=== PATIENT | female | born 1945 | race Caucasian/White ===

== ENCOUNTER → 2018-09-12 08:46 | Outpatient (CLI) | payer MEDICARE, MEDICAID, SELFPAY ==
[2018-09-12 09:18] LABS: Absolute Lymphocyte Count 2.29 X10^3/ul (0.83-4.51); Absolute Neutrophil Count 1.4 X10^3/uL (2.0-7.7); Basophil# 0.02 X10^3/uL; Basophil% 0.5 % (0-1); Eosinophils% 2.4 % (0-5); Hematocrit 38.6 % (37-47); Hemoglobin 11.8 g/dl (12.0-15.0); Lymphocyte # 2.29 X10^3/ul (4.0); Lymphocyte % 53.9 % (19-41); Mean Corp Hgb Conc 30.6 g/gl (32-36); Mean Corpuscular Hgb 24.5 pg (27.0-32.0); Mean Corpuscular Volume 80.1 fL (81-99); Mean Platelet Vol. 11.4 fl (6.2-12.0); Monocyte# 0.47 X10^3/uL; Monocyte% 11.1 % (0-10); Neutrophil # 1.37 X10^3/uL (2.7-7.7); Neutrophil % 32.1 % (47-70); Platelet Count 208 K/mm3 (150-450); RBC Distribution Width CV 16.2 % (11.6-14.6); RBC Distribution Width SD 45.9 fl (35.1-43.9); Red Blood Count 4.82 M/mm3 (4.2-5.4); White Blood Count 4.3 K/mm3 (4.4-11.0)
[2018-09-12 09:23] LABS: POSITIVE COUNT NO; POSITIVE DIFFERENTIAL NO; POSITIVE MORPHOLOGY NO
[2018-09-12 09:33] LABS: BUN 20 mg/dL (7-18); Glucose 131 mg/dL (74-106)
[2018-09-12 09:34] LABS: Anion Gap 7 (5-15); Calcium,Total 8.5 mg/dL (8.5-10.1); Chloride 111 mmol/L (98-107); EST Glomerular Filtration Rate 75 mL/min (>60); Est Glom Filt Rate - Afr Amer 91 mL/min (>60); Potassium 3.4 mmol/L (3.5-5.1); Sodium Level 142 mmol/L (136-145)
--- NOTE | 2018-09-12 17:24 | PCM.TILTTABL ---
- Staff Staff: Aysha Back, - - Jess Mcfarlane - Summary Pre Test Resting HR: 86 - Alert and oriented: Warm and dry Pre Test Resting BP: 180/83 - Alert and oriented: Warm and dry Minimum Test HR: 84 - Alert and oriented: Warm and dry Maximum Test HR: 100 - Alert and oriented: Warm and dry Minimum Test BP: 110/56 - Alert and oriented: Warm and dry Maximum Test BP: 180/83 - Alert and oriented: Warm and dry Reason for Test Termination: Reached Maximum Test Time Physician Tilt Table Report - Patient's Physicians Primary Care Physician: Quan Reddy [employer] Room Supervisor: Gonzalo Frias Indications/Diagnosis: Syncope Procedure Comments: The patient was brought to the tilt table laboratory laid supine on the tilt table. The patient was alert and oriented and warm and dry. The baseline heart rate was 83 bpm with a baseline blood pressure of 180/83 mmHg. The cardiac rhythm was normal sinus rhythm. The patient was placed in the 70 degree upright tilt table position for 20 minutes. The patient remained alert and oriented and warm and dry. The minimal heart rate was 84 bpm with a minimal blood pressure of 152/74 mmHg. The maximal heart rate was 93 bpm with a maximal blood pressure of 180/83 mmHg. The cardiac rhythm remained sinus rhythm with a rare PAC/PVC. The patient noted symptoms of pressure in the chest shortness of breath, headache, but did not lose consciousness. The patient was returned to the supine position. The patient was then administered nitroglycerin sublingual 0.4 mg x 1. Patient was returned to the 70 degree upright tilt table position for 10 minutes. The patient remained alert and oriented and warm and dry. The minimal heart rate was 88 bpm with a minimal blood pressure of 110/56 mmHg and a maximal heart rate of 100 bpm with a maximal blood pressure 143/72 mmHg. The cardiac rhythm remains sinus rhythm with a rare PAC. The patient complained of chest pounding, dizziness, and headache. The patient did not lose consciousness. The patient was returned to the supine position. The patient remained alert and oriented and warm and dry. The concluding heart rate was 92 bpm with a concluding blood pressure 149/73 mmHg. The cardiac rhythm remains sinus rhythm. The patient was without symptoms at that time. The patient was subsequently released from the tilt table laboratory. Summary: 70 degree upright tilt table study pre-and post nitroglycerin challenge considered negative for reproducible vasovagal/neurocardiogenic mediated syncope.
[2018-09-12 17:32] VITALS: BP 110/56; BP 180/83
== END ==
PROVIDERS: Family Provider Internal Medicine; PCP Internal Medicine; Referring Provider Internal Medicine; Visit Provider Internal Medicine
DX: Z01.818 Encounter for other preprocedural examination (principal); R55 Syncope and collapse
CPT/HCPCS: 36415; 80048; 85025; 93660; J7040; A4216

== ENCOUNTER → 2019-09-28 10:27 | Outpatient (CLI) | payer MEDICARE, MEDICAID, SELFPAY ==
--- NOTE | 2019-09-28 10:29 | ART_ITS ---
Reason For Study: PVD Procedure A bilateral lower extremity continuous wave Doppler with analog waveform analysis,segmental pressures,and ankle brachial indexes without exercise. Left Segmental Pressures Left brachial= 188mmHg. Left calf = 109mmHg. Left posterior tibial artery = 106mmHg. Left dorsalis pedis artery = 107mmHg. Left digit = 69 mmHg. The left dorsalis pedis waveforms are monophasic. The left posterior tibial artery waveforms are monophasic. Right Segmental Pressures Right brachial= 186mmHg. Right thigh = 159mmHg. Right ankle= 115mmHg. Right dorsalis pedis artery = 93mmHg. Right digit = 83 mmHg. The right dorsalis pedis waveforms are monophasic. The right posterior tibial artery waveforms are absent. Indices The right ankle brachial index by the dorsalis pedis is 0.49. The right digital-brachial index is 0.44. The left ankle brachial index by the dorsalis pedis is 0.57. The left ankle brachial index by the posterior tibial artery is 0.56. The left digital-brachial index is 0.37. Interpretation Summary On able to obtain right posterior tibial blood pressure Abnormal right PT ankle-brachial index 0.49 consistent with severe arterial occlusive disease. Abnormal right digital brachial index 0.44 Abnormal right dorsalis pedis monophasic Doppler waveforms consistent with severe disease Abnormal left PT and DP ankle-brachial index 0.56 and 0.57 consistent with moderately severe arterial occlusive disease. Abnormal left digital brachial index 0.37 Abnormal left posterior tibial and dorsalis pedis monophasic Doppler waveforms consistent with severe disease Ordering Physician: Dharmesh Gutierrez Referring Physician: Quan Reddy Performed By: Pia Cannon RVT
== END ==
PROVIDERS: PCP Internal Medicine; Referring Provider Surgery; Visit Provider Surgery
DX: I73.9 Peripheral vascular disease, unspecified (principal); M79.605 Pain in left leg
CPT/HCPCS: 93923

== ENCOUNTER 2020-01-14 14:18 | Inpatient (IN) | payer MEDICARE, MEDICAID, SELFPAY ==
[2019-10-09 12:41] VITALS: BMI 26.8
[2020-01-14] VITALS (14 sets, daily range): BP systolic 104–130; BP diastolic 42–57; PULSE 65–80; RESP 16–24; TEMP 36.7–37.8; O2SAT 87–96; BMI 30.8; BMI 30.3; BMI 30.4
--- NOTE | 2020-01-14 15:05 | CT_ITS ---
STUDY: CT BRAIN WITHOUT CONTRAST REASON FOR EXAM: Female, 74 years old. ALTERED MENTAL STATUS, FOUND UNRESPONSIVE THIS AM RADIATION DOSAGE (If Supplied By Facility): CTDIvol = ( 44.99 ) mGy, DLP = ( 846.73 ) mGycm TECHNIQUE: Transaxial CT imaging of the brain was performed without administration of intravenous contrast material. Individualized dose optimization techniques were used for this CT. COMPARISON: Comparison is made with prior examination dated 01/14/2015. FINDINGS: Normal soft tissue structures. Normal calvarium. There is mild cerebral atrophy with widening of the extra-axial spaces and ventricular dilatation. Normal white matter tracts of the cerebral hemispheres. Normal basal ganglia and thalami. Normal brainstem. Normal cerebellum. There is no intracranial hemorrhage. There are no findings of an acute ischemic infarction. Atherosclerotic plaque formation of the cavernous portions of the internal carotid arteries bilaterally. Normal visualized paranasal sinuses. CT/Brain/Head without Contrast IMPRESSION: Chronic involutional changes of the brain. Electronically Signed: Han Medel, at 15:49 EDT , Service support ,
--- NOTE | 2020-01-14 15:07 | EKG12_ITS ---
Test Reason : HYPERKALEMIA Blood Pressure : / mmHG Vent. Rate : 065 BPM Atrial Rate : 065 BPM P-R Int : 160 ms QRS Dur : 070 ms QT Int : 414 ms P-R-T Axes : 027 043 061 degrees QTc Int : 430 ms Normal sinus rhythm Normal ECG When compared with ECG of 14-JAN-2020 14:48, MANUAL COMPARISON REQUIRED, DATA IS UNCONFIRMED Confirmed by KAMALA HOPKINS, DARIN ([id number]), features editor JOVANI NAVARRO ([id number]) on 01/17/2020 11:02:23 AM Referred By: BILL Confirmed By:DARIN WRAY MD
--- NOTE | 2020-01-14 15:23 | ED.VIS.GEN ---
History of Present Illness Chief Complaint: Alt LOC Informant: Family, Community Outreach Advocate Narrative: Patient is a 74-year-old female presenting from home for decreased responsiveness. I spoke to her daughter on the phone, Glenny who relayed the information. The patient was discharged from [facility] yesterday after she had a prolonged stay due to an infected graft in her left groin. Patient had a wound VAC in a PICC line as well as associated sepsis. Her PICC line was removed yesterday and patient seen be doing better. She went to bed around 830 or 9 PM last night and seemed normal. Around 6 AM when her daughter tried to give her her normal medications the patient would not wake up. She checked on her throughout the day and tried to wake up multiple times with patient remained very somnolent. This afternoon patient continued to not respond the patient's daughter called 911. Patient is currently on Eliquis. The daughter states that patient is DNR CCA. Patient was not having any acute complaints yesterday. Past Medical History - Allergies and Home Meds Allergies/Adverse Reactions: Allergies cefuroxime axetil [From Ceftin] Allergy (Verified 01/14/20 14:23) Other Qxddugr-Rks-Uxb Reductase Inhibitor Adverse Reaction (Verified 01/14/20 19:01) MY LEGS GIVE OUT MY LEGS GIVE OUT Past Medical History: - - Stroke, GERD, depression, peripheral vascular disease, hypertension, hyperlipidemia, type 2 diabetes mellitus Surgical History: appendectomy, cholecystectomy, gastric bypass, hysterectomy - Dysfunctional uterine bleeding, tonsillectomy, - - Vascular surgery on her lower extremities by Dr. Dharmesh Gutierrez. IVC filter. Smoking Status: Never smoker - Family History Maternal Family History: Reports: - - Maternal grandmother had breast cancer, her mother had cardiovascular disease. Paternal Family History: Reports: Heart Disease Sibling Family History: Reports: Heart Disease, - - Sister had cancer of the bladder and liver Review of Systems ROS: Unable to Obtain - Secondary to altered mental status and patient unable to respond to questions Physical Exam Vital Signs/Narrative: Vital Signs Temp Pulse Resp BP Pulse Ox 01/14/20 14:23 79 23 H 93 01/14/20 14:19 100.0 F H 80 24 H 105/54 L 87 Inital Vital Signs reviewed: Yes General: Well nourished, Well developed, No Acute Distress Head: Normocephalic, Atraumatic Eyes: Perrl, EOMI ENT: Moist mucous membranes, No rhinorrhea, TM's clear Neck: Supple, Nontender Cardiovascular: Regular rate, Regular rhythm, No murmurs Respiratory: No distress, CTA bilaterally, Chest nontender, - - Tachypnea Abdomen: Soft, Nontender, Nondistended, Normal bowel sounds Back: Nontender, Normal Inspection Extremities: Nontender, No edema, - - 2+ bilateral DP pulses Skin: Normal color, No rash, - - Mild erythema of the left upper thigh and groin consistent with recent infection of that appears to be resolving. Patient has an open wound of her left groin that is packed with gauze but does not appear to be grossly infected at this time. Neurological: Stupor, - - Patient appears protecting her airway and responds to painful stimuli but does not have any spontaneous or purposeful movements. She is not have any focal neurologic deficits. Psychological: Normal affect, Normal Mood Diagnostic/Tx/Re-eval Chest X-Ray - ED: 1 View, Read by ED Physician, Read by Radiologist, - - Bilateral infiltrate Clinical Impression(s) from Imaging Studies Brain CT 01/14/20 15:05 IMPRESSION: Chronic involutional changes of the brain. Electronically Signed: Han Gianfranco, at 15:49 EDT , Service support , Chest X-Ray 01/14/20 15:30 IMPRESSION: Stable elevation of the left hemidiaphragm with perihilar infiltrates as well as bibasilar infiltrates. Follow-up is recommended. Electronically Signed: Han Medel, at 15:50 EDT , Service support , Laboratory Data 01/14/20 01/14/20 01/14/20 15:15 15:15 15:15 WBC 7.8 RBC 3.08 L Hgb 10.0 L Hct 31.4 L MCV 101.9 H MCH 32.5 H MCHC 31.8 L RDW Std Deviation 71.7 H RDW Coeff of Dorothea 19.4 H Plt Count 123 L MPV 13.9 H Differential Comment PT 18.3 H INR 1.6 APTT 34.9 Specimen Type Sample Site pH Bicarbonate Actual Total CO2 Base Excess O2 Saturation O2 % ABG pCO2 ABG pO2 Ruddy Test O2 Delivery Device Sodium Potassium Chloride Carbon Dioxide Anion Gap BUN Creatinine Estim Creat Clear Calc Est GFR (MDRD) Af Amer Est GFR (MDRD) Non-Af BUN/Creatinine Ratio Glucose Lactic Acid Calcium Total Bilirubin AST ALT Alkaline Phosphatase Troponin I < 0.015 Total Protein Albumin Globulin Albumin/Globulin Ratio Procalcitonin Urine Color Urine Clarity Urine pH Ur Specific [place] Urine Protein Urine Glucose (UA) Urine Ketones Urine Occult Blood Urine Nitrite Urine Bilirubin Urine Urobilinogen Ur Leukocyte Esterase Urine RBC Urine WBC Ur Squamous Epith Cells Amorphous Sediment Urine Bacteria Hyaline Casts Urine Mucus COVID-19 (SIMBA) 01/14/20 01/14/20 01/14/20 15:15 15:15 15:23 WBC RBC Hgb Hct MCV MCH MCHC RDW Std Deviation RDW Coeff of Dorothea Plt Count MPV Differential Comment PT INR APTT Specimen Type ART Sample Site L Radial pH 7.33 L Bicarbonate Actual 23.5 Total CO2 25 Base Excess -3 L O2 Saturation 94 L O2 % 2 ABG pCO2 45.1 H ABG pO2 75 Ruddy Test Positive O2 Delivery Device Cannula Sodium 139 Potassium 6.3 H* Chloride 111 H Carbon Dioxide 23.0 Anion Gap 5 BUN 16 Creatinine 0.98 Estim Creat Clear Calc 46.69 Est GFR (MDRD) Af Amer 72 Est GFR (MDRD) Non-Af 59 L BUN/Creatinine Ratio 16.3 Glucose 117 H Lactic Acid 0.9 Calcium 8.1 L Total Bilirubin 0.40 AST 156 H ALT 62 H Alkaline Phosphatase 282 H Troponin I Total Protein 5.8 L Albumin 1.9 L Globulin 3.9 Albumin/Globulin Ratio 0.5 L Procalcitonin Urine Color Urine Clarity Urine pH Ur Specific [place] Urine Protein Urine Glucose (UA) Urine Ketones Urine Occult Blood Urine Nitrite Urine Bilirubin Urine Urobilinogen Ur Leukocyte Esterase Urine RBC Urine WBC Ur Squamous Epith Cells Amorphous Sediment Urine Bacteria Hyaline Casts Urine Mucus COVID-19 (SIMBA) 01/14/20 01/14/20 01/14/20 16:10 16:48 17:00 WBC RBC Hgb Hct MCV MCH MCHC RDW Std Deviation RDW Coeff of Dorothea Plt Count MPV Differential Comment PT INR APTT Specimen Type Sample Site pH Bicarbonate Actual Total CO2 Base Excess O2 Saturation O2 % ABG pCO2 ABG pO2 Ruddy Test O2 Delivery Device Sodium Potassium Chloride Carbon Dioxide Anion Gap BUN Creatinine Estim Creat Clear Calc Est GFR (MDRD) Af Amer Est GFR (MDRD) Non-Af BUN/Creatinine Ratio Glucose Lactic Acid Calcium Total Bilirubin AST ALT Alkaline Phosphatase Troponin I Total Protein Albumin Globulin Albumin/Globulin Ratio Procalcitonin 1.74 H Urine Color Yellow Urine Clarity Clear Urine pH 5.0 Ur Specific [place] 1.020 Urine Protein 30 H Urine Glucose (UA) Normal Urine Ketones 5 H Urine Occult Blood 25 H Urine Nitrite Negative Urine Bilirubin Negative Urine Urobilinogen Normal Ur Leukocyte Esterase Negative Urine RBC 0 SEEN Urine WBC 0-5 SEEN Ur Squamous Epith Cells 5-10 SEEN Amorphous Sediment 1+ Urine Bacteria 1+ Hyaline Casts 0-5 SEEN Urine Mucus 0 SEEN COVID-19 (SIMBA) Negative - Rhythm Strip Rhythm Strip: Sinus Rhythm Rate: 76 Ectopy: None - EKG Initial EKG Interpretation: Sinus Rhythm, - - Sinus rhythm at a rate of 76 Normal intervals Normal axis Normal ST segments - Medical Decision Making Is evaluated for altered mental status. Patient is quite somnolent and lethargic in the emergency room. She is tachypneic but otherwise well-appearing. Her work-up is significant for bilateral pneumonia. She likely has encephalopathy secondary to this pneumonia. Given her recent hospitalization she is covered with broad-spectrum antibiotics. Patient does have a head CT which is negative for any acute process. I will patient did have recent infection of her legs she does not appear to have an acute infection at this time. Patient is hemodynamically stable and has minimal O2 requirements. Discussed with the hospitalist and we agreed that she should be stable for the PCU. ED Disposition - Plan for ED Patient: Disposition: [facility] Diagnosis: Encephalopathy, toxic, Bilateral pneumonia, Transaminitis
--- NOTE | 2020-01-14 15:30 | RAD_ITS ---
STUDY: X-RAY CHEST REASON FOR EXAM: Female, 74 years old. ALTERED MENTAL STATUS TECHNIQUE: Single AP portable view of the chest. COMPARISON: Comparison is made with prior study dated 07/09/2014. FINDINGS: EKG electrodes are seen. There is evidence of a bilateral perihilar infiltrates. Increased markings are also seen at both lung bases. The differential diagnosis to consider should include a CHF versus bilateral pneumonia. Stable elevation of the left hemidiaphragm. Blunting of left costophrenic angle. Normal size heart. Normal mediastinum and belen. Normal visualized pulmonary arteries. There is atherosclerotic calcification of the aortic arch with tortuosity. There are degenerative changes of the visualized thoracic spine. Normal visualized ribs, clavicles, and shoulders. There is no demonstrated abnormality of the visualized soft tissue structures of the upper abdomen. RAD/Chest 1 View (Portable) IMPRESSION: Stable elevation of the left hemidiaphragm with perihilar infiltrates as well as bibasilar infiltrates. Follow-up is recommended. Electronically Signed: Han Medel, at 15:50 EDT , Service support ,
[2020-01-14 15:31] LABS: Allen Test Positive; Base Excess -3 mmol/L (-2 to +2); Bicarbonate 23.5 mmol/L (22-26); Blood Gas Specimen Type ART; FI02 2; O2 Delivery Device Cannula; PO2 75 mmHG (75-100); SITE L Radial; SO2 94 % (95-99); Total Carbon Dioxide 25 mmol/L; pCO2 45.1 mmHg (35-45); pH 7.33 (7.35-7.45)
[2020-01-14 15:37] LABS: Hematocrit 31.4 % (37-47); Mean Corp Hgb Conc 31.8 g/dL (32-36); Mean Corpuscular Hgb 32.5 pg (27.0-32.0); Mean Corpuscular Volume 101.9 fL (81-99); Mean Platelet Vol. 13.9 fl (6.2-12.0); POSITIVE MORPHOLOGY YES; Platelet Count 123 K/mm3 (150-450); RBC Distribution Width CV 19.4 % (11.6-14.6); RBC Distribution Width SD 71.7 fl (35.1-43.9); Red Blood Count 3.08 M/mm3 (4.2-5.4); White Blood Count 7.8 K/mm3 (4.4-11.0)
[2020-01-14 15:41] LABS: Scan Indicated on CBC? Y/N YES- FLAGS NOTED
[2020-01-14 15:47] LABS: International Normalized Ratio 1.6; Prothrombin Time (Protime)PT. 18.3 SECONDS (11.7-14.9)
[2020-01-14 15:48] LABS: Partial Thromboplast Time 34.9 Seconds (24.1-36.2)
[2020-01-14 16:08] LABS: Lactic Acid 0.9 mmol/L (0.4-1.9)
[2020-01-14 16:19] LABS: Mucous, Urine 0 SEEN /hpf (<or=2+); Red Blood Cells-Urine 0 SEEN /hpf (0-5)
[2020-01-14 16:27] LABS: Color, Urine Yellow (Yellow); Glucose, Dipstick Normal (Normal); Ketone-Dipstick 5 mg/dl (Negative); Leukocyte Esterase-Dipstick Negative /ul (Negative); Nitrite-Dipstick Negative (Negative); Occult Blood-Urine 25 /ul (Negative); Protein-Dipstick 30 mg/dl (Negative); Urine Bilirubin Dipstick Negative (Negative); Urine Clarity Clear (Clear); Urine Urobilinogen Normal (Normal)
[2020-01-14 17:04] LABS: Squamous Epithelial Cells - UA 5-10 SEEN /hpf (5-10)
[2020-01-14 17:05] LABS: Bacteria 1+ /hpf (None Seen); Hyaline Cast 0-5 SEEN /lpf (0-5); White Blood Cells 0-5 SEEN /hpf (0-5)
[2020-01-14 17:06] LABS: Amorphous Sediment 1+
[2020-01-14] MEDS: 0.9% Normal Saline 1,000 ML 125 ML IV (17:11)
[2020-01-14 18:10] LABS: Procalcitonin 1.74 ng/mL (0.00-0.09)
[2020-01-14 18:30] LABS: Probe Check PASS; Specimen Processing Control PASS
--- NOTE | 2020-01-14 19:00 | HP.PCM_ITS ---
Problem List (1) Pneumonia due to gram-negative bacteria Status: Acute (2) Encephalopathy, toxic Status: Acute (3) skin cancer vulva Status: Chronic (4) history of IVC filter Status: Chronic (5) History of syncope Status: Chronic Comment: and collapse, recurrent.....for over a year now (6) PVD (peripheral vascular disease) Status: Chronic Comment: Had bypass surgery done by Dr. John Gutierrez (7) HTN (hypertension) Status: Chronic (8) Type II diabetes mellitus, uncontrolled Status: Chronic Comment: diet controlled after the gastric bypas surgery (9) GERD (gastroesophageal reflux disease) Status: Chronic (10) History of attempted suicide Status: Chronic (11) Psychosis Status: Chronic Comment: she is seen at the [facility] center and has hallucinations (12) Nephrolithiasis Status: Chronic (13) HLD (hyperlipidemia) Status: Chronic (14) History of bariatric surgery Status: Chronic Comment: 2010? History of Present Illness Date of Admission: 01/14/20 Chief Complaint: somnolence The patient is a 74 year old F found unresponsive by family. Patient was just discharged by [facility] for an infected graft. Patient is confused this time and unable to provide any history. No family present at bedside. History obtained to the emergency room physician. Patient had work-up that showed infiltrate the x-ray. Patient received Pipracil/tazobactam as well as vancomycin. Family was offered the opportunity return to [facility] but they prefer to stay here for the time being. [] Past Medical History Past Medical History (Chronic Problems): Chronic Problems (Last Reviewed 10/09/19 @ 12:33 by Paula Dunaway) skin cancer vulva (Chronic) history of IVC filter (Chronic) History of syncope (Chronic) and collapse, recurrent.....for over a year now PVD (peripheral vascular disease) (Chronic) Had bypass surgery done by Dr. John Gutierrez HTN (hypertension) (Chronic) Type II diabetes mellitus, uncontrolled (Chronic) diet controlled after the gastric bypas surgery GERD (gastroesophageal reflux disease) (Chronic) History of attempted suicide (Chronic) Psychosis (Chronic) she is seen at the [facility] center and has hallucinations Nephrolithiasis (Chronic) HLD (hyperlipidemia) (Chronic) History of bariatric surgery (Chronic) 2010? Medical History: Medical History (Last Reviewed 01/14/20 @ 19:[address] Fabiano Garcia, DO) skin cancer vulva (Chronic) history of IVC filter (Chronic) History of syncope (Chronic) Z87.898 and collapse, recurrent.....for over a year now PVD (peripheral vascular disease) (Chronic) I73.9 Had bypass surgery done by Dr. John Gutierrez HTN (hypertension) (Chronic) I10 Type II diabetes mellitus, uncontrolled (Chronic) E11.65 diet controlled after the gastric bypas surgery GERD (gastroesophageal reflux disease) (Chronic) K21.9 History of attempted suicide (Chronic) Z91.5 Psychosis (Chronic) F29 she is seen at the [facility] and has hallucinations Nephrolithiasis (Chronic) HLD (hyperlipidemia) (Chronic) E78.5 CVA (cerebral vascular accident) I63.9 Allergies cefuroxime axetil [From Ceftin] Allergy (Verified 01/14/20 14:23) Other Wttvtlr-Ljk-Pdx Reductase Inhibitor Adverse Reaction (Verified 01/14/20 14:23) Other MY LEGS GIVE OUT Home Medications: Ambulatory Orders Medication Instructions Recorded Clonazepam [Klonopin] 1 mg PO QHS PRN PRN 07/09/14 Cyanocobalamin [Vitamin B12] 1,000 mcg PO DAILY@0800 07/09/14 aspirin 81 mg tablet,delayed 325 mg PO BID tab 10/09/19 release Albuterol Sulfate [Albuterol 2 puff INHALATION 4X/DAY 01/14/20 Sulfate HFA] Amlodipine [Norvasc] 10 mg PO DAILY@0800 01/14/20 Apixaban [Eliquis] 5 mg PO BID 01/14/20 Budesonide/Formoterol Fumarate 2 puff INHALATION BID 01/14/20 [Budesonide-Formoterol 160-4.5] Cholecalciferol (Vitamin D3) 5,000 unit PO DAILY 01/14/20 [Vitamin D3] Gabapentin [Gralise] 600 mg PO TID@0800,1200,199901/14/20 Ipratropium/Albuterol Sulfate 3 ml IH 4X/DAY 01/14/20 [Iprat-Albut 0.5-3(2.5) mg/3 ml] Losartan Potassium [Cozaar] 100 mg PO DAILY@0800 01/14/20 Metoprolol Succinate [Toprol Xl] 100 mg PO QHS@219901/14/20 Oxycodone HCl 5 mg PO Q6H PRN PRN 01/14/20 Quetiapine Fumarate [Seroquel] 50 mg PO DAILY@0800 01/14/20 Quetiapine Fumarate [Seroquel] 200 mg PO QHS@2200 01/14/20 Venlafaxine HCl [Effexor] 75 mg PO TID@0800,1200,2000 01/14/20 Surgical History: Surgical History (Last Reviewed 01/14/20 @ 19:[address] Fabiano Garcia, DO) History of bariatric surgery (Chronic) Z98.84 2011? S/P coronary artery bypass graft x 1 Z95.1 S/P foot surgery, left Z98.890 S/P gastric bypass Z98.84 S/P hysterectomy Z90.710 S/P laparoscopic cholecystectomy Z90.49 S/P tonsillectomy Z90.89 s/p heart surgery s/p leg bypass left x 2 and right x 1 Surgical History: appendectomy, cholecystectomy, gastric bypass, hysterectomy - Dysfunctional uterine bleeding, tonsillectomy, - - Vascular surgery on her lower extremities by Dr. Dharmesh Gutierrez. IVC filter. Psychiatric History: Depression, Prior suicide attempt, - - Psychosis [employer] History: dysfunctional uterine bld, - - She has cancer of the vulva Smoking Status: Former smoker - *Family History Maternal History Items: - - Maternal grandmother had breast cancer, her mother had cardiovascular disease. Paternal History Items: Heart Disease Sibling History Items: Heart Disease, - - Sister had cancer of the bladder and liver Review of Systems Unable to obtain accurate/complete ROS d/t: Patient is confused VTE Information - Inpt Only VTE Present on Admission: No VTE Mechan Device Prophylaxis: None VTE Pharm Prophylaxis ordered?: No Reason prophylaxis not ordered:: Treatment Not Indicated - Physical Exam Vitals/I&O's: Vital Signs Temp Pulse Resp BP Pulse Ox 37.4 C H 67 16 123/55 H 94 01/14/20 18:57 01/14/20 18:57 01/14/20 18:57 01/14/20 18:57 01/14/20 18:57 Oxygen Flow Rate (L/min) 2 Oxygen Delivery Method Nasal Cannula Weight: 84.1 kg Body Mass Index (BMI) 30.8 Intake and Output for Last 24 Hours 01/12/20 01/13/20 01/14/20 23:59 23:59 23:59 Intake Total 745 / 745 Balance 745 / 745 General: Confused, - - Afebrile. Follows some commands. HEENT: Atraumatic, - - No scleral icterus Oral: Moist Mucosa, No Gingival or Mucosal Lesions/ Ulcerations Neck: No Nodes, Thyroid Normal Size and Texture Lungs: Diminished, - - Coarse breath sounds bilaterally. Poor respiratory effort. No respiratory distress. Cardiovascular: Regular rate, Regular Rhythm, Normal S1, Normal S2, No murmurs Abdomen: Bowel Sounds Present, Soft, Non Tender, Non-Distended, No Hepato- splenomegaly, Obese Extremities: No edema, No Calf Tenderness Skin: - - Patient has a opening in her left lower quadrant that we had packing in it. This is underneath her pannus and there was some maceration in the region. Musculoskeletal: No Tenderness to Palpation of Joints or Extremities, No Muscle Wasting Neurological: Muscle tone normal, - - No clonus Laboratory Results 01/14/20 15:15: WBC 7.8, RBC 3.08 L, Hgb 10.0 L, Hct 31.4 L, MCV 101.9 H, MCH 32.5 H, MCHC 31.8 L, RDW Std Deviation 71.7 H, RDW Coeff of Dorothea 19.4 H, Plt Count 123 L, MPV 13.9 H, Differential Comment 01/14/20 15:15: PT 18.3 H, INR 1.6, APTT 34.9 01/14/20 15:15: Troponin I < 0.015 01/14/20 15:15: Lactic Acid 0.9 01/14/20 15:15: Sodium Pending, Potassium Pending, Chloride Pending, Carbon Dioxide Pending, Anion Gap Pending, BUN Pending, Creatinine Pending, Est GFR (MDRD) Af Amer Pending, Est GFR (MDRD) Non-Af Pending, BUN/Creatinine Ratio Pending, Glucose Pending, Calcium Pending, Total Bilirubin Pending, AST Pending, ALT Pending, Alkaline Phosphatase Pending, Total Protein Pending, Albumin Pending 01/14/20 15:23: Specimen Type ART, Sample Site L Radial, pH 7.33 L, Bicarbonate Actual 23.5, Total CO2 25, Base Excess -3 L, O2 Saturation 94 L, O2 % 2, ABG pCO2 45.1 H, ABG pO2 75, Ruddy Test Positive, O2 Delivery Device Cannula 01/14/20 16:10: Urine Color Yellow, Urine Clarity Clear, Urine pH 5.0, Ur Specific [place] 1.020, Urine Protein 30 H, Urine Glucose (UA) Normal, Urine Ketones 5 H, Urine Occult Blood 25 H, Urine Nitrite Negative, Urine Bilirubin Negative, Urine Urobilinogen Normal, Ur Leukocyte Esterase Negative, Urine RBC 0 SEEN, Urine WBC 0-5 SEEN, Ur Squamous Epith Cells 5-10 SEEN, Amorphous Sediment 1+, Urine Bacteria 1+, Hyaline Casts 0-5 SEEN, Urine Mucus 0 SEEN 01/14/20 16:48: Procalcitonin 1.74 H 01/14/20 17:00: COVID-19 (SIMBA) Negative EKG reviewed and showed normal sinus rhythm. Chest x-ray reviewed and showed bilateral patchy infiltrates. Assessment/Plan All Active Problems (Last Updated 10/09/19 @ 13:07 by Paula Dunaway) Pneumonia due to gram-negative bacteria (Acute) Encephalopathy, toxic (Acute) History of pulmonary embolism (Resolved) 1. Suspected gram-negative pneumonia * Other possibilities could be heart failure though clinically patient does not really manifest any other signs of CHF, such as JVD no extremity edema. * Patient was negative for COVID-19 * Patient at risk for healthcare acquired pneumonia given recent hospitalization at [facility] * Continue with Pipracil and/tazobactam and vancomycin. * Pulmonary toilet 2. Encephalopathy * Suspected combination of toxic and metabolic. Feel this may be the case given the pneumonia but also a long list of potentiating medications, including Effexor, gabapentin, Lorazepam, oxycodone, and Seroquel * Will check an ammonia level * Hold the potentiating medications * Head CT showed chronic changes 3. Recent infected vascular graft * No antibiotics on her home medication list * Check records from [facility] * Consult wound care 4. Chronic conditions: * Stroke * PAD * Hypertension continue with metoprolol succinate. BMP is currently pending still holding off on losartan at this time. * Psychosis: Hold clonazepam, Seroquel * Diabetes mellitus type 2: Add sliding scale insulin 5. VTE prophylaxis: Not indicated as patient is already anticoagulated on apixaban 6. Advanced care planning: ER physician spoke with the POA and patient is DNR Comfort Care arrest. Inpatient E&M: [id number] Init Hosp L3
[2020-01-14 20:35] LABS: ALB/GLOB Ratio 0.5 RATIO (0.9-2.4); AST(SGOT) 156 U/L (15-37); Alanine Aminotransfer ALT/SGPT 62 U/L (13-56); Albumin, Serum 1.9 g/dL (3.2-5.0); Alkaline Phosphatase 282 U/L (45-117); Anion Gap 5 (5-15); BUN 16 mg/dL (7-18); BUN/Creat Ratio 16.3 RATIO (10-20); Calcium,Total 8.1 mg/dL (8.5-10.1); Chloride 111 mmol/L (98-107); Creatinine, Serum 0.98 mg/dL (0.55-1.02); EST Glomerular Filtration Rate 59 mL/min (>60); Est Glom Filt Rate - Afr Amer 72 mL/min (>60); Estimated Creatinine Clearance 46.69 ml/min; Globulin 3.9 g/dL (2.2-4.2); Glucose 117 mg/dL (74-106); Potassium 6.3 mmol/L (3.5-5.1); Protein, Total 5.8 g/dL (6.4-8.2); Sodium Level 139 mmol/L (136-145)
[2020-01-14 20:56] LABS: Bedside Glucose 130 mg/dL (70-110)
--- NOTE | 2020-01-14 21:02 | PCM.RX.CS ---
Consult Pharmacy has been consulted to manage selected antiobiotic: Vancomycin Type of Consult: New start Suspected Infection: Pneumonia Labs: Sodium 139 mmol/L (136-145) 01/14/20 15:15 Potassium 6.3 mmol/L (3.5-5.1) H* 01/14/20 15:15 Chloride 111 mmol/L (98-107) H 01/14/20 15:15 Carbon Dioxide 23.0 mmol/L (21.0-32.0) 01/14/20 15:15 Anion Gap 5 (5-15) 01/14/20 15:15 BUN 16 mg/dL (7-18) 01/14/20 15:15 Creatinine 0.98 mg/dL (0.55-1.02) 01/14/20 15:15 Est GFR (MDRD) Af Amer 72 mL/min (>60) 01/14/20 15:15 Est GFR (MDRD) Non-Af 59 mL/min (>60) L 01/14/20 15:15 BUN/Creatinine Ratio 16.3 RATIO (10-20) 01/14/20 15:15 Glucose 117 mg/dL (74-106) H 01/14/20 15:15 Goal Trough: 15-20 mcg/mL Pharmacy Plan for Drug Dosing: NEW START IV VANCOMYCIN Consulting Physician: FLACO Indication: PNA Goal Trough: 15-20MG/DL SrCr: 0.98 CrCl: 55.1 ML/MIN (USING ADJUSTED BODY WEIGHT) Comments: ER LOADING DOSE OF 2000MG GIVEN 01/13 @ 1938 VancomYCin Dose: 750MG Q12H STARTING 01/14 @ 0730 Pharmacy Service will continue to monitor and adjust dosing as required. Labs to be done on [date and time ordered]: 01/17/20 @ 0700
--- NOTE | 2020-01-14 21:06 | EKG12_ITS ---
Test Reason : SOB Blood Pressure : / mmHG Vent. Rate : 076 BPM Atrial Rate : 076 BPM P-R Int : 158 ms QRS Dur : 074 ms QT Int : 378 ms P-R-T Axes : 008 024 048 degrees QTc Int : 425 ms Normal sinus rhythm Low voltage QRS (Limb Leads) Confirmed by IFEOMA HOPKINS, EUGENIO ([id number]), editorial director JOVANI NAVARRO ([id number]) on 01/17/2020 11:16:35 AM Referred By: BREONNA
--- NOTE | 2020-01-14 21:25 | PCM.PN.BLA ---
Progress Note Nurse reported patient is too encephalopathic to take any p.o. medications. Eliquis was held. Will discontinue Eliquis at this time. Patient has IVC filter. Will order Lovenox therapeutic dose. Also patient on aspirin 325 mg p.o. twice daily. Will change to aspirin rectally 300 mg daily. For patient's hyperkalemia reportedly Patient is sinus rhythm on telemetry. Will get stat EKG. Will give glucose with insulin. Also will give albuterol inhalation. Will give Kayexalate rectally and repeat potassium after treatment. Potassium increasing medication: On home losartan that was not started on admission. STROKE Vital Signs/Narrative: Vital Signs Temp Pulse Resp BP Pulse Ox 01/14/20 21:05 98.8 F 65 20 H 118/54 L 94 01/14/20 19:27 98.5 F 73 20 H 130/57 H 95 01/14/20 19:26 71 01/14/20 18:57 99.3 F H 67 16 123/55 H 94 01/14/20 18:34 99.3 F H 67 16 123/55 H 94
[2020-01-14] MEDS: Budesonide Respules 0.5 MG/2 ML AMPUL.NEB. INHALATION (22:00)
[2020-01-14] MEDS: Dextrose 50%-Water 25 GM/50 ML DISP.SYRIN IV (22:02)
[2020-01-14] MEDS: Enoxaparin 80 MG/0.8 ML Syringe SC (22:05)
[2020-01-14] MEDS: 0.9% Saline Lock 10 ML Syringe IV (22:07)
[2020-01-14] MEDS: Sodium Polystyrene Sulfonate 15 GM/60 ML UDC 30 GM RECTAL (22:07)
[2020-01-14] MEDS: Insulin Lispro 10 UNIT in Syringe 0 ML 6 UNIT IV (22:08)
[2020-01-14] MEDS: Albuterol 2.5 MG/3 ML VIAL.NEB. INHALATION ×4 (22:21→22:22)
--- NOTE | 2020-01-14 22:39 | NURSING ---
RN ATTEMPTED TO CALL DAUGHTER AMADA BACK TO UPDATE ABOUT PATIENT CONDITION, NO ANSWER AT THIS TIME.
[2020-01-15] VITALS (16 sets, daily range): BP systolic 94–142; BP diastolic 42–67; PULSE 73–100; RESP 16–20; TEMP 36.7–37.4; O2SAT 90–98
[2020-01-15 01:21] LABS: Bedside Glucose 116 mg/dL (70-110)
[2020-01-15 03:52] LABS: Anion Gap 2 (5-15); BUN 18 mg/dL (7-18); BUN/Creat Ratio 24.4 RATIO (10-20); Calcium,Total 7.6 mg/dL (8.5-10.1); Chloride 113 mmol/L (98-107); Creatinine, Serum 0.74 mg/dL (0.55-1.02); EST Glomerular Filtration Rate 82 mL/min (>60); Est Glom Filt Rate - Afr Amer 99 mL/min (>60); Estimated Creatinine Clearance 45.76 ml/min; Glucose 97 mg/dL (74-106); Potassium 4.2 mmol/L (3.5-5.1); Sodium Level 142 mmol/L (136-145)
--- NOTE | 2020-01-15 04:11 | CPS ---
albuterol 2.5mg x4 txxs given back to back, pt tolerated well. BS worse after aerosols tho. BS with audible exp wheezes and coarse crackles. RN notified, o2 requirements increased as well. pt on 4L nasal cannula.
[2020-01-15] MEDS: 0.9% Saline Lock 10 ML Syringe IV (04:59)
[2020-01-15 06:30] LABS: Absolute Lymphocyte Count 1.45 X10^3/uL (0.83-4.51); Absolute Neutrophil Count 4.1 X10^3/uL (2.0-7.7); Basophil# 0.04 X10^3/uL; Basophil% 0.6 % (0-1); Eosinophil# 0.09 X10^3/uL; Eosinophils% 1.4 % (0-5); Hematocrit 28.4 % (37-47); Hemoglobin 8.8 g/dL (12.0-15.0); Lymphocyte # 1.45 X10^3/ul (4.0); Lymphocyte % 22.6 % (19-41); Mean Corpuscular Hgb 31.8 pg (27.0-32.0); Mean Corpuscular Volume 102.5 fL (81-99); Mean Platelet Vol. 12.9 fl (6.2-12.0); Monocyte# 0.76 X10^3/uL; Monocyte% 11.8 % (0-10); NRBC Flagged by Analyzer 0 % (0-5); Neutrophil # 4.05 X10^3/uL (2.7-7.7); Neutrophil % 63.1 % (47-70); POSITIVE MORPHOLOGY YES; Platelet Count 102 K/mm3 (150-450); RBC Distribution Width CV 19.3 % (11.6-14.6); RBC Distribution Width SD 72.2 fl (35.1-43.9); Red Blood Count 2.77 M/mm3 (4.2-5.4); White Blood Count 6.4 K/mm3 (4.4-11.0)
[2020-01-15 06:37] LABS: Differential Indicated SCAN CRITERIA MET
[2020-01-15 06:46] LABS: Bedside Glucose 96 mg/dL (70-110)
[2020-01-15 06:51] LABS: Anion Gap 2 (5-15); BUN 18 mg/dL (7-18); BUN/Creat Ratio 25.3 RATIO (10-20); Calcium,Total 7.8 mg/dL (8.5-10.1); Chloride 114 mmol/L (98-107); Creatinine, Serum 0.71 mg/dL (0.55-1.02); EST Glomerular Filtration Rate 86 mL/min (>60); Est Glom Filt Rate - Afr Amer 104 mL/min (>60); Estimated Creatinine Clearance 45.76 ml/min; Glucose 97 mg/dL (74-106); Potassium 4.3 mmol/L (3.5-5.1); Sodium Level 141 mmol/L (136-145)
[2020-01-15 07:01] LABS: Differential Comment SCANNED; Macrocytosis 3+
[2020-01-15] MEDS: Ipratropium/Albuterol Sulfate 3 ML AMPUL.NEB INHALATION ×4 (07:14→19:59)
[2020-01-15] MEDS: Budesonide Respules 0.5 MG/2 ML AMPUL.NEB. INHALATION ×2 (07:14→19:59)
--- NOTE | 2020-01-15 07:14 | CPS ---
PATIENT RESTING, PEEP PLACED AT BEDSIDE.
[2020-01-15] MEDS: Enoxaparin 80 MG/0.8 ML Syringe SC ×2 (09:40→21:17)
[2020-01-15] MEDS: Aspirin E.C. 325 MG Tablet PO ×2 (09:40→21:08)
[2020-01-15 11:55] LABS: Bedside Glucose 105 mg/dL (70-110)
--- NOTE | 2020-01-15 12:02 | NURSING ---
wound photo: left groin
--- NOTE | 2020-01-15 12:34 | PCM.PN.HOSP ---
Patient Problems: Active and Suspected Problems (Last Reviewed 01/14/20 @ 19:[address] Fabiano Garcia, DO) Encephalopathy, toxic (Acute) Bilateral pneumonia (Acute) Transaminitis (Acute) Subjective: Feels a bit better, more alert today Vitals/I&O's: Vital Signs Temp Pulse Resp BP Pulse Ox 98.7 F 83 16 125/63 H 95 01/15/20 08:58 01/15/20 08:58 01/15/20 08:58 01/15/20 08:58 01/15/20 08:58 Oxygen Flow Rate (L/min) 4 Oxygen Delivery Method Nasal Cannula Weight: 182 lb 8.014 oz Body Mass Index (BMI) 30.3 Intake and Output for Last 24 Hours 01/13/20 01/14/20 01/15/20 23:59 23:59 23:59 Intake Total 1285 / 1285 863.00 / 863.00 Output Total 500 / 500 Balance 1285 / 1285 363.00 / 363.00 General: Alert, Cooperative, No apparent distress, Disoriented HEENT: Atraumatic, PERRLA, EOMI, Normocephalic Oral: Moist Mucosa Neck: Supple, No JVD Lungs: Diminished, Rhonchi - Bilaterally Cardiovascular: Regular rate, Regular Rhythm, Normal S1, Normal S2, No murmurs Abdomen: Soft, Non Tender, Non-Distended, No Hepato-splenomegaly Extremities: No edema Skin: - - Maceration and wound underneath her pannus in the left lower quadrant, appears stable based on review of previous documentation Neurological: Neuro grossly intact, Sensory exam intact to light touch and pain Psych/Mental Status: Flat Affect Microbiology Past 72 Hours 01/14/20 17:00 Mucosa - Nose Respiratory Panel (PCR) - Final 01/14/20 16:10 Urine, Clean Catch Streptococcus pneumoniae Antigen (M - Final 01/14/20 16:10 Urine, Clean Catch Legionella Antigen - Final Laboratory Results 01/14/20 15:15: WBC 7.8, RBC 3.08 L, Hgb 10.0 L, Hct 31.4 L, MCV 101.9 H, MCH 32.5 H, MCHC 31.8 L, RDW Std Deviation 71.7 H, RDW Coeff of Dorothea 19.4 H, Plt Count 123 L, MPV 13.9 H, Differential Comment 08/31/20 15:15: PT 18.3 H, INR 1.6, APTT 34.9 01/14/20 15:15: Troponin I < 0.015 01/14/20 15:15: Lactic Acid 0.9 01/14/20 15:15: Sodium 139, Potassium 6.3 H*, Chloride 111 H, Carbon Dioxide 23.0, Anion Gap 5, BUN 16, Creatinine 0.98, Estim Creat Clear Calc 46.69, Est GFR (MDRD) Af Amer 72, Est GFR (MDRD) Non-Af 59 L, BUN/Creatinine Ratio 16.3, Glucose 117 H, Calcium 8.1 L, Total Bilirubin 0.40, AST 156 H, ALT 62 H, Alkaline Phosphatase 282 H, Total Protein 5.8 L, Albumin 1.9 L, Globulin 3.9, Albumin/Globulin Ratio 0.5 L 01/14/20 15:23: Specimen Type ART, Sample Site L Radial, pH 7.33 L, Bicarbonate Actual 23.5, Total CO2 25, Base Excess -3 L, O2 Saturation 94 L, O2 % 2, ABG pCO2 45.1 H, ABG pO2 75, Ruddy Test Positive, O2 Delivery Device Cannula 01/14/20 16:10: Urine Color Yellow, Urine Clarity Clear, Urine pH 5.0, Ur Specific [place] 1.020, Urine Protein 30 H, Urine Glucose (UA) Normal, Urine Ketones 5 H, Urine Occult Blood 25 H, Urine Nitrite Negative, Urine Bilirubin Negative, Urine Urobilinogen Normal, Ur Leukocyte Esterase Negative, Urine RBC 0 SEEN, Urine WBC 0-5 SEEN, Ur Squamous Epith Cells 5-10 SEEN, Amorphous Sediment 1+, Urine Bacteria 1+, Hyaline Casts 0-5 SEEN, Urine Mucus 0 SEEN 01/14/20 16:48: Procalcitonin 1.74 H 01/14/20 17:00: COVID-19 (SIMBA) Negative 01/14/20 19:50: Ammonia 17.0 01/14/20 20:38: POC Glucose 130 H 01/15/20 01:18: POC Glucose 116 H 01/15/20 03:20: Sodium 142, Potassium 4.2, Chloride 113 H, Carbon Dioxide 27.0, Anion Gap 2 L, BUN 18, Creatinine 0.74, Estim Creat Clear Calc 45.76, Est GFR (MDRD) Af Amer 99, Est GFR (MDRD) Non-Af 82, BUN/Creatinine Ratio 24.4 H, Glucose 97, Calcium 7.6 L 01/15/20 05:54: WBC 6.4, RBC 2.77 L, Hgb 8.8 L, Hct 28.4 L, MCV 102.5 H, MCH 31.8, MCHC 31.0 L, RDW Std Deviation 72.2 H, RDW Coeff of Dorothea 19.3 H, Plt Count 102 L, MPV 12.9 H, Immature Gran % (Auto) 0.500, Neut % (Auto) 63.1, Lymph % (Auto) 22.6, [place] % (Auto) 11.8 H, Eos % (Auto) 1.4, Baso % (Auto) 0.6, Absolute Neuts (auto) 4.1, Absolute Lymphs (auto) 1.45, Nucleated RBC % 0, Differential Comment SCANNED, Macrocytosis 3+ 01/15/20 05:54: Sodium 141, Potassium 4.3, Chloride 114 H, Carbon Dioxide 25.0, Anion Gap 2 L, BUN 18, Creatinine 0.71, Estim Creat Clear Calc 45.76, Est GFR (MDRD) Af Amer 104, Est GFR (MDRD) Non-Af 86, BUN/Creatinine Ratio 25.3 H, Glucose 97, Calcium 7.8 L 01/15/20 06:38: POC Glucose 96 01/15/20 11:48: POC Glucose 105 Current Medications Acetaminophen (Tylenol) 650 mg RECTAL Q4H PRN PRN PRN Reason: Pain Score 1-10/Temp > 100.7 F Acetaminophen (Tylenol) 650 mg PO Q6H PRN PRN PRN Reason: Pain Score 1-10/Temp > 100.7 F Albuterol/Ipratropium (Duoneb) 3 ml INHALATION 4X/DAY.RT [facility] Last Admin: 01/15/20 11:15 Dose: 3 ml Documented by: Aspirin (Ecotrin) 325 mg PO BID [facility] Last Admin: 01/15/20 09:40 Dose: 325 mg Documented by: Budesonide (Pulmicort Aerosol) 0.5 mg INHALATION Q12H.RT [facility] Last Admin: 01/15/20 07:14 Dose: 0.5 mg Documented by: Cholecalciferol (Vitamin D (25mcg)) 5,000 unit PO DAILY [facility] Last Admin: 01/15/20 08:42 Dose: Not Given Documented by: Cyanocobalamin (Vitamin B12) 1,000 mcg PO DAILY@0800 [facility] Last Admin: 01/15/20 08:42 Dose: Not Given Documented by: Dextrose (D50w Syringe) 0 gm IV X1 PRN; Protocol PRN Reason: Hypoglycemia Enoxaparin Sodium (Lovenox) 80 mg SC Q12 [facility] Last Admin: 01/15/20 09:40 Dose: 80 mg Documented by: Glucagon () 1 mg IM .X1 PRN PRN Reason: Hypoglycemia Piperacillin Sod/Tazobactam (Sod 3.375 gm/ Sodium Chloride) 50 mls @ 12.5 mls/hr IV Q8 [facility] Stop: 01/21/20 06:01 Last Infusion: 01/15/20 08:59 Dose: Infused Documented by: Vancomycin IV Pharmacy to Dose (1 ea/ Sodium Chloride) 500 mls @ 250 mls/hr IV X1 PRN; Protocol PRN Reason: Rx to Dose Vancomycin HCl 750 mg/ Sodium (Chloride) 265 mls @ 250 mls/hr IV Q12H [facility] Last Infusion: 01/15/20 10:28 Dose: Infused Documented by: Sodium Chloride () 250 mls @ 15 mls/hr IV .[id number] PRN PRN Reason: Saline Flush Last Infusion: 01/15/20 11:09 Dose: 0 mls/hr Documented by: Sodium Chloride () 250 mls @ 15 mls/hr IV .[id number] PRN PRN Reason: Additional IVPB Infusion Last Infusion: 01/15/20 05:04 Dose: 0 mls/hr Documented by: Insulin Human Lispro (Humalog Kwikpen (Bkc)) 0 unit SC TIDAC [facility]; Protocol Last Admin: 01/15/20 11:49 Dose: Not Given Documented by: Metoprolol Succinate (Toprol Xl (Beta Noe)) 100 mg PO QHS@2200 [facility] Last Admin: 01/14/20 21:10 Dose: Not Given Documented by: Sodium Chloride () 10 - 40 ml IV UD PRN PRN Reason: SALINE FLUSH Last Admin: 01/15/20 04:59 Dose: 20 ml Documented by: STROKE Vital Signs/Narrative: Vital Signs Temp Pulse Resp BP Pulse Ox 01/15/20 08:58 98.7 F 83 16 125/63 H 95 Medical Necessity - Tobacco Use Smoking Status: Unknown if ever smoked Assessment/Plan All Active Problems (Last Reviewed 01/14/20 @ 19:[address] Fabiano Garcia, DO) Pneumonia due to gram-negative bacteria (Acute) Encephalopathy, toxic (Acute) Bilateral pneumonia (Acute) Transaminitis (Acute) History of pulmonary embolism (Resolved) 1. Sepsis suspected gram-negative pneumonia with metabolic versus toxic encephalopathy and acute hypoxic respiratory insufficiency/hyperkalemia/COPD not on chronic oxygen -Continue with Zosyn and vancomycin -Blood cultures are pending, respiratory panel was negative as was Legionella and strep pneumo antigen -Her home medications were held considering her encephalopathy, these medications included Effexor, gabapentin, lorazepam, oxycodone, and Seroquel -We will continue to monitor with pulmonary toilet -PT/OT -She was on IV fluids and her potassium was treated overnight. She went from 6.3 down to 4.2. She did not have any EKG changes when her potassium was 6.3 -He with nasal cannula and her home inhalers 2. Recent vascular graft at [facility] secondary to peripheral vascular disease -Apparently this was infected however she had no antibiotics on her MAR -Awaiting records from [facility] 3. HTN/HLD/CAD status post CABG -Her blood pressure does appear stable at this time -We will continue to hold her blood pressure medications, including Norvasc, and losartan, can continue with her metoprolol -She is currently on therapeutic Lovenox since she cannot tolerate taking anything p.o. and she is on Eliquis 4. DVT -She is on Eliquis and has a history of an IVC filter -We will place her on therapeutic Lovenox until she is more stable and able to take p.o. 5. DM 2 status post gastric bypass -She no longer takes any medications for her diabetes and she is diet controlled -We will hold her gabapentin given her encephalopathy 6. Psychosis -Unsure of the baseline diagnosis, however she is supposed to be on Seroquel, Effexor -We will hold these medications until she is more stable, and then can slowly reintroduce these medications DVT: Therapeutic Lovenox Inpatient E&M: [id number] [facility] Hosp L2
--- NOTE | 2020-01-15 13:40 | CASEMGMT ---
KYRIE VANG Face to Face with patient for initial transition planning/care coordination assessment. RN CIERA introduced self and role at [facility]. Patient sitting in chair, alert and oriented. Patient willing to participate in assessment and is able to answer all questions appropriately. Care providers, pharmacy, and demographics verified. Patient wishes to discharge home, with resumption of home health with [facility]. Patient states she has no further needs or concerns at this time. CM to follow for discharge planning needs that may arise. PCP: Maureen Specialists: Eddy Vaz c d area supervisor; follows with vascular surgeon at [facility] Preferred Pharmacy: [facility] Insurance: [employer] [facility] Prescription Benefit: yes Living Will/HPOA: none, would like to complete, SW updated LNOK: daughter and grandson Living Arrangements: Patient lives with daughter and grandson in a single story home. Patient states she is independent for self care, daughter assist with household activities. Transportation: Daughter DME/HHC: Patient states she has walker, rollator, wheelchair, shower chair, grab bars, and nebulizer at home. Patient has previously been to [employer]. Patient is current with [facility]. Patient also has passport services with [employer] [employer] CM. Disposition Plan: Patient to discharge home with [facility], family support, and follow-up plans in place. Pia DOMINGUEZ, RN, CM
--- NOTE | 2020-01-15 15:16 | CASEMGMT ---
Addendum entered by Pia Motley 01/15/20 15:30: Call back from Gaye at [facility] and she is updated on admission at this time, voices understanding. Updated clinicals/discharge info to be faxed once obtained. Syed MITTAL CM Original Note: Pt states is active with [facility] so H&P with facesheet and KELSIE order faxed to [facility] at this time. Message left with Gaye at [facility] in regards to same at this time with this RN CIERA's contact info. Syed MITTAL CM
[2020-01-15 18:46] LABS: Bedside Glucose 113 mg/dL (70-110)
[2020-01-15] MEDS: Metoprolol(XL)Succ 100 MG Tablet PO (21:08)
[2020-01-15] MEDS: Acetaminophen 325 MG Tablet 650 MG PO (21:12)
[2020-01-15 21:36] LABS: Bedside Glucose 122 mg/dL (70-110)
[2020-01-15] MEDS: oxyCODONE 5 MG Tablet PO (22:57)
[2020-01-16] VITALS (17 sets, daily range): BP systolic 136–150; BP diastolic 63–74; PULSE 73–89; RESP 16–20; TEMP 36.8–37.1; O2SAT 93–97
[2020-01-16] MEDS: 0.9% Saline Lock 10 ML Syringe IV (05:05)
[2020-01-16] MEDS: Ipratropium/Albuterol Sulfate 3 ML AMPUL.NEB INHALATION ×3 (07:04→18:47)
[2020-01-16 07:22] LABS: Absolute Lymphocyte Count 2.03 X10^3/uL (0.83-4.51); Absolute Neutrophil Count 3.5 X10^3/uL (2.0-7.7); Basophil# 0.04 X10^3/uL; Basophil% 0.6 % (0-1); Eosinophil# 0.19 X10^3/uL; Eosinophils% 2.9 % (0-5); Hematocrit 31.2 % (37-47); Lymphocyte # 2.03 X10^3/ul (4.0); Lymphocyte % 31.4 % (19-41); Mean Corp Hgb Conc 32.1 g/dL (32-36); Mean Corpuscular Hgb 32.5 pg (27.0-32.0); Mean Corpuscular Volume 101.3 fL (81-99); Mean Platelet Vol. 12.6 fl (6.2-12.0); Monocyte# 0.68 X10^3/uL; Monocyte% 10.5 % (0-10); NRBC Flagged by Analyzer 0 % (0-5); Neutrophil # 3.52 X10^3/uL (2.7-7.7); Neutrophil % 54.4 % (47-70); POSITIVE MORPHOLOGY YES; Platelet Count 154 K/mm3 (150-450); RBC Distribution Width CV 19.2 % (11.6-14.6); Red Blood Count 3.08 M/mm3 (4.2-5.4); White Blood Count 6.5 K/mm3 (4.4-11.0)
[2020-01-16 07:28] LABS: Differential Indicated SCAN CRITERIA MET
[2020-01-16 07:43] LABS: Anion Gap 3 (5-15); BUN 15 mg/dL (7-18); BUN/Creat Ratio 22.4 RATIO (10-20); Calcium,Total 8.1 mg/dL (8.5-10.1); Chloride 113 mmol/L (98-107); Creatinine, Serum 0.67 mg/dL (0.55-1.02); EST Glomerular Filtration Rate 92 mL/min (>60); Est Glom Filt Rate - Afr Amer 111 mL/min (>60); Estimated Creatinine Clearance 45.76 ml/min; Glucose 108 mg/dL (74-106); Sodium Level 141 mmol/L (136-145)
[2020-01-16 07:55] LABS: Anisocytosis 1+
[2020-01-16 08:01] LABS: Bedside Glucose 98 mg/dL (70-110)
[2020-01-16 08:02] LABS: Vancomycin, Trough Level 18.9 ug/mL (5.0-15.0)
--- NOTE | 2020-01-16 08:57 | PCM.RX.CS ---
Consult Pharmacy has been consulted to manage selected antiobiotic: Vancomycin Type of Consult: Follow-up Suspected Infection: Sepsis, Pneumonia Prior Doses of Antibiotics Received/Current Regimen: current regimen is 750mg IV q12h Labs: Sodium 141 mmol/L (136-145) 01/16/20 07:11 Potassium 4.0 mmol/L (3.5-5.1) 01/16/20 07:11 Chloride 113 mmol/L (98-107) H 01/16/20 07:11 Carbon Dioxide 25.0 mmol/L (21.0-32.0) 01/16/20 07:11 Anion Gap 3 (5-15) L 01/16/20 07:11 BUN 15 mg/dL (7-18) 01/16/20 07:11 Creatinine 0.67 mg/dL (0.55-1.02) 01/16/20 07:11 Est GFR (MDRD) Af Amer 111 mL/min (>60) 01/16/20 07:11 Est GFR (MDRD) Non-Af 92 mL/min (>60) 01/16/20 07:11 BUN/Creatinine Ratio 22.4 RATIO (10-20) H 01/16/20 07:11 Glucose 108 mg/dL (74-106) H 01/16/20 07:11 Vancomycin Trough 18.9 ug/mL (5.0-15.0) H 01/16/20 07:11 Microbiology: Microbiology 01/14/20 17:00 Mucosa - Nose Respiratory Panel (PCR) - Final 01/14/20 16:10 Urine, Clean Catch Streptococcus pneumoniae Antigen (M - Final 01/14/20 16:10 Urine, Clean Catch Legionella Antigen - Final Weight used for dosin.8 kg Estimated Creatinine Clearance: 67.5ml/min Goal Trough: 15-20 mcg/mL Pharmacy Plan for Drug Dosing: Trough drawn this morning (about 12 hours after last night's dose) came back as 18.9, which is within goal range of 15-20. Since it is already up to 18.9 after only 1 dose of 2000mg and 2 doses of 750mg, will recheck the trough tomorrow morning to make sure it is not trending up even higher and goes over 20. The patient's renal function has actually improved since the initial start date of vancomycin (CrCl is now at 67.5ml/min and was calculated using an adjusted body weight of 67.3kg). Pharmacy Service will continue to monitor and adjust dosing as required. Follow-Up Labs: Trough Vancomycin Labs to be done on [date and time ordered]: 01/17/20 0700
[2020-01-16] MEDS: Cyanocobalamin 500 MCG Tablet 1000 MCG PO (09:16)
[2020-01-16] MEDS: Aspirin E.C. 325 MG Tablet PO ×2 (09:16→21:31)
--- NOTE | 2020-01-16 09:17 | PN_ITS ---
Patient Problems: Active and Suspected Problems (Last Reviewed 01/14/20 @ 19:[address] Fabiano Garcia, DO) Encephalopathy, toxic (Acute) Bilateral pneumonia (Acute) Transaminitis (Acute) Subjective: Feeling better, no issues overnight. Seems to be much more alert even today compared to yesterday Vitals/I&O's: Vital Signs Temp Pulse Resp BP Pulse Ox 98.3 F 80 18 143/63 H 97 01/16/20 09:10 01/16/20 09:10 01/16/20 09:10 01/16/20 09:10 01/16/20 09:10 Oxygen Flow Rate (L/min) 3 Oxygen Delivery Method Nasal Cannula Weight: 182 lb 8.014 oz Body Mass Index (BMI) 30.3 Intake and Output for Last 24 Hours 01/14/20 01/15/20 01/16/20 23:59 23:59 23:59 Intake Total 1285 / 1285 1178.00 / 1178.00 100 / 100 Output Total 500 / 500 Balance 1285 / 1285 678.00 / 678.00 100 / 100 General: Alert, Cooperative, No apparent distress, Disoriented HEENT: Atraumatic, PERRLA, EOMI, Normocephalic Oral: Moist Mucosa Neck: Supple, No JVD Lungs: Diminished, Rhonchi - Bilaterally Cardiovascular: Regular rate, Regular Rhythm, Normal S1, Normal S2, No murmurs Abdomen: Soft, Non Tender, Non-Distended, No Hepato-splenomegaly Extremities: No edema Skin: - - Maceration and wound underneath her pannus in the left lower quadrant, appears stable based on review of previous documentation Neurological: Neuro grossly intact, Sensory exam intact to light touch and pain Psych/Mental Status: Normal affect, appropriate Microbiology Past 72 Hours 01/14/20 17:00 Mucosa - Nose Respiratory Panel (PCR) - Final 01/14/20 16:10 Urine, Clean Catch Streptococcus pneumoniae Antigen (M - Final 01/14/20 16:10 Urine, Clean Catch Legionella Antigen - Final Laboratory Results 01/15/20 11:48: POC Glucose 105 01/15/20 16:52: POC Glucose 113 H 01/15/20 21:11: POC Glucose 122 H 01/16/20 06:36: POC Glucose 98 01/16/20 07:11: Vancomycin Trough 18.9 H 01/16/20 07:11: WBC 6.5, RBC 3.08 L, Hgb 10.0 L, Hct 31.2 L, MCV 101.3 H, MCH 32.5 H, MCHC 32.1, RDW Std Deviation 71.0 H, RDW Coeff of Dorothea 19.2 H, Plt Count 154, MPV 12.6 H, Immature Gran % (Auto) 0.200, Neut % (Auto) 54.4, Lymph % (Auto) 31.4, [place] % (Auto) 10.5 H, Eos % (Auto) 2.9, Baso % (Auto) 0.6, Absolute Neuts (auto) 3.5, Absolute Lymphs (auto) 2.03, Nucleated RBC % 0, Diff Path Review COMPUTER SYSTEMS ARCHITECT, Anisocytosis 1+ 01/16/20 07:11: Sodium 141, Potassium 4.0, Chloride 113 H, Carbon Dioxide 25.0, Anion Gap 3 L, BUN 15, Creatinine 0.67, Estim Creat Clear Calc 45.76, Est GFR (MDRD) Af Amer 111, Est GFR (MDRD) Non-Af 92, BUN/Creatinine Ratio 22.4 H, Glucose 108 H, Calcium 8.1 L Current Medications Acetaminophen (Tylenol) 650 mg RECTAL Q4H PRN PRN PRN Reason: Pain Score 1-10/Temp > 100.7 F Acetaminophen (Tylenol) 650 mg PO Q6H PRN PRN PRN Reason: Pain Score 1-10/Temp > 100.7 F Last Admin: 01/15/20 21:12 Dose: 650 mg Documented by: Albuterol/Ipratropium (Duoneb) 3 ml INHALATION 4X/DAY.RT [facility] Last Admin: 01/16/20 07:04 Dose: 3 ml Documented by: Aspirin (Ecotrin) 325 mg PO BID [facility] Last Admin: 01/15/20 21:08 Dose: 325 mg Documented by: Budesonide (Pulmicort Aerosol) 0.5 mg INHALATION Q12H.RT [facility] Last Admin: 01/15/20 19:59 Dose: 0.5 mg Documented by: Cholecalciferol (Vitamin D (25mcg)) 5,000 unit PO DAILY [facility] Last Admin: 01/15/20 08:42 Dose: Not Given Documented by: Cyanocobalamin (Vitamin B12) 1,000 mcg PO DAILY@0800 [facility] Last Admin: 01/15/20 08:42 Dose: Not Given Documented by: Dextrose (D50w Syringe) 0 gm IV X1 PRN; Protocol PRN Reason: Hypoglycemia Enoxaparin Sodium (Lovenox) 80 mg SC Q12 [facility] Last Admin: 01/15/20 21:17 Dose: 80 mg Documented by: Glucagon () 1 mg IM .X1 PRN PRN Reason: Hypoglycemia Piperacillin Sod/Tazobactam (Sod 3.375 gm/ Sodium Chloride) 50 mls @ 12.5 mls/hr IV Q8 [facility] Stop: 01/21/20 06:01 Last Infusion: 01/16/20 09:10 Dose: Infused Documented by: Vancomycin IV Pharmacy to Dose (1 ea/ Sodium Chloride) 500 mls @ 250 mls/hr IV X1 PRN; Protocol PRN Reason: Rx to Dose Vancomycin HCl 750 mg/ Sodium (Chloride) 265 mls @ 250 mls/hr IV Q12H [facility] Last Infusion: 01/15/20 20:15 Dose: Infused Documented by: Sodium Chloride () 250 mls @ 15 mls/hr IV .[id number] PRN PRN Reason: Saline Flush Last Infusion: 01/15/20 11:09 Dose: 0 mls/hr Documented by: Sodium Chloride () 250 mls @ 15 mls/hr IV .[id number] PRN PRN Reason: Additional IVPB Infusion Last Infusion: 01/15/20 05:04 Dose: 0 mls/hr Documented by: Insulin Human Lispro (Humalog Kwikpen (Bkc)) 0 unit SC TIDAC [facility]; Protocol Last Admin: 01/16/20 06:39 Dose: Not Given Documented by: Metoprolol Succinate (Toprol Xl (Beta Noe)) 100 mg PO QHS@2200 [facility] Last Admin: 01/15/20 21:08 Dose: 100 mg Documented by: Nutritional Formula (Lactose Free) (Glucerna Shake) 120 ml PO TIDCM [facility] Oxycodone HCl (Oxyir) 5 mg PO Q6H PRN PRN PRN Reason: Pain Score 6-10/10 Last Admin: 01/15/20 22:57 Dose: 5 mg Documented by: Sodium Chloride () 10 - 40 ml IV UD PRN PRN Reason: SALINE FLUSH Last Admin: 01/16/20 05:05 Dose: 10 ml Documented by: STROKE Vital Signs/Narrative: Vital Signs Temp Pulse Resp BP Pulse Ox 01/16/20 09:10 98.3 F 80 18 143/63 H 97 01/16/20 07:04 77 17 01/16/20 07:00 88 01/16/20 06:38 98.7 F 75 20 H 136/63 H 96 Medical Necessity - Tobacco Use Smoking Status: Unknown if ever smoked Assessment/Plan All Active Problems (Last Reviewed 01/14/20 @ 19:[address] Fabiano Garcia, DO) Pneumonia due to gram-negative bacteria (Acute) Encephalopathy, toxic (Acute) Bilateral pneumonia (Acute) Transaminitis (Acute) History of pulmonary embolism (Resolved) 1. Sepsis suspected gram-negative pneumonia with metabolic versus toxic encephalopathy and acute hypoxic respiratory insufficiency/hyperkalemia/COPD not on chronic oxygen -Continue with Zosyn and vancomycin -Blood cultures are pending, respiratory panel was negative as was Legionella and strep pneumo antigen -Her home medications were held considering her encephalopathy, can restart most of her home medications at half the dose and monitor -We will continue to monitor with pulmonary toilet -PT/OT -Potassium has normalized -He with nasal cannula and her home inhalers, continue to wean oxygen 2. Recent vascular graft at [facility] secondary to peripheral vascular disease -Apparently this was infected however she had no antibiotics on her JUL, she did have a wound VAC in place it does appear that she had completed those antibiotics. -Awaiting records from [facility] 3. HTN/HLD/CAD status post CABG -Her blood pressure does appear stable at this time -We will restart all of her home blood pressure medications -We will restart her Eliquis and discontinue the therapeutic Lovenox 4. DVT -She is on Eliquis and has a history of an IVC filter -We will place her on therapeutic Lovenox until she is more stable and able to take p.o. 5. DM 2 status post gastric bypass -She no longer takes any medications for her diabetes and she is diet controlled -We will hold her gabapentin given her encephalopathy 6. Schizophrenia -she is supposed to be on Seroquel, Effexor -We will resume her Seroquel with 50 mg in the morning and 100 mg at night, her Klonopin can be continued as as needed, and will continue with her Effexor unchanged DVT: Alberto Inpatient E&M: 45044 Subs Hosp L2
[2020-01-16] MEDS: Glucerna Shake 120 ML LIQUID PO (09:19)
[2020-01-16] MEDS: APIXABAN 5 MG TABLET PO ×2 (11:27→21:24)
[2020-01-16] MEDS: Venlafaxine HCl 75 MG Tablet PO ×2 (11:27→20:28)
[2020-01-16] MEDS: Gabapentin 300 MG Capsule PO ×2 (11:27→20:30)
[2020-01-16] MEDS: oxyCODONE 5 MG Tablet PO ×2 (11:28→19:38)
[2020-01-16 11:35] LABS: Bedside Glucose 98 mg/dL (70-110)
--- NOTE | 2020-01-16 13:19 | CASEMGMT ---
Social Work SW met with pt and assisted in completing Living will and Health care POA. Pt named her daughter Anya Macias. Copy placed on chart and original given to pt. PAULINO spoke with pt regarding discharge plan. Pt stating she was at [facility] for two days, due to PICC line and wound vac. From there went to [facility] then [facility]. Pt was home one day and then came to [facility]. Pt stating she no longer needs the PICC line nor the Wound Vac and with therapy she is able to get around room and to bathroom. Pt dgt lives with pt and is her home health aid. Pt also gets RN and PT through [facility] home care. Pt plans to return home with dgt and continuation of home health. Pt does not feel she needs SNF at this time. KYRIE PalacioCM updated. Plan: Home with home health RN,PT,JM Floyd
--- NOTE | 2020-01-16 14:40 | NURSING ---
Called and talked with patient's surgeon's nurse to see if marge can be removed from the left leg since they have been in over a month. nurse states she will talk with surgeon and call this nurse back. pt aware.
--- NOTE | 2020-01-16 15:45 | NURSING ---
Talked with surgeon's office. orders received to remove marge from the left leg. talked with Dr Davis and order was given to remove marge. Pt tolerated staple removal well. incisions remain well approximated. no redness noted. will reassess tomorrow. pt denies further needs at this time.
[2020-01-16 17:01] LABS: Bedside Glucose 91 mg/dL (70-110)
[2020-01-16] MEDS: Budesonide Respules 0.5 MG/2 ML AMPUL.NEB. INHALATION (18:47)
[2020-01-16] MEDS: Acetaminophen 325 MG Tablet 650 MG PO (20:27)
[2020-01-16] MEDS: QUEtiapine 100 MG Tablet PO (21:25)
[2020-01-16] MEDS: Metoprolol(XL)Succ 100 MG Tablet PO (21:43)
[2020-01-17] VITALS (8 sets, daily range): BP systolic 150–168; BP diastolic 68–70; PULSE 74–84; RESP 14–20; TEMP 36.8–36.9; O2SAT 89–96
[2020-01-17] MEDS: oxyCODONE 5 MG Tablet PO ×2 (04:13→11:16)
[2020-01-17] MEDS: Acetaminophen 325 MG Tablet 650 MG PO (06:20)
[2020-01-17 06:30] LABS: Bedside Glucose 103 mg/dL (70-110)
[2020-01-17] MEDS: Budesonide Respules 0.5 MG/2 ML AMPUL.NEB. INHALATION (07:11)
[2020-01-17] MEDS: Ipratropium/Albuterol Sulfate 3 ML AMPUL.NEB INHALATION ×2 (07:11→10:46)
[2020-01-17 07:51] LABS: Vancomycin, Trough Level 18.9 ug/mL (5.0-15.0)
--- NOTE | 2020-01-17 08:25 | PCM.RX.CS ---
Consult Pharmacy has been consulted to manage selected antiobiotic: Vancomycin Type of Consult: Follow-up Suspected Infection: Sepsis Labs: Sodium 141 mmol/L (136-145) 01/16/20 07:11 Potassium 4.0 mmol/L (3.5-5.1) 01/16/20 07:11 Chloride 113 mmol/L (98-107) H 01/16/20 07:11 Carbon Dioxide 25.0 mmol/L (21.0-32.0) 01/16/20 07:11 Anion Gap 3 (5-15) L 01/16/20 07:11 BUN 15 mg/dL (7-18) 01/16/20 07:11 Creatinine 0.67 mg/dL (0.55-1.02) 01/16/20 07:11 Est GFR (MDRD) Af Amer 111 mL/min (>60) 01/16/20 07:11 Est GFR (MDRD) Non-Af 92 mL/min (>60) 01/16/20 07:11 BUN/Creatinine Ratio 22.4 RATIO (10-20) H 01/16/20 07:11 Glucose 108 mg/dL (74-106) H 01/16/20 07:11 Vancomycin Trough 18.9 ug/mL (5.0-15.0) H 01/17/20 07:04 Microbiology: Microbiology 01/14/20 16:48 Blood Culture (Wb) - Left Hand Blood Culture - Preliminary No growth in 48 hours. 01/14/20 15:15 Blood Culture (Wb) - Right Wrist Blood Culture - Preliminary No growth in 48 hours. 01/14/20 17:00 Mucosa - Nose Respiratory Panel (PCR) - Final 01/14/20 16:10 Urine, Clean Catch Streptococcus pneumoniae Antigen (M - Final 01/14/20 16:10 Urine, Clean Catch Legionella Antigen - Final Pharmacy Plan for Drug Dosing: VANCOMYCIN LEVEL RECEIVED Current Vancomycin Dose: 750mg q12h (0730,1930) Number of Doses Received: 4 x 750mg dose, 1 x 2000mg loading dose Vancomycin Level: 18.9 Hours Since Last Dose: 11.5 Renal Function: 0.67 Renal Function Trend: SrCr improving (0.98 to 0.67) Lab/Micro: Vancomycin Plan/Comments: keep pt on current dose of 750mg q12h. check level on 01/19/20 at 0700 Pending Level: 01/19/20 at 0700 Pharmacy Service will continue to monitor and adjust dosing as required. Follow-Up Labs: Trough Vancomycin - 01/18 at 0700
[2020-01-17] MEDS: amLODIPine 10 MG Tablet PO (09:42)
[2020-01-17] MEDS: Gabapentin 300 MG Capsule PO ×2 (09:42→12:55)
[2020-01-17] MEDS: Losartan Potassium 100 MG Tablet PO (09:42)
[2020-01-17] MEDS: APIXABAN 5 MG TABLET PO (09:42)
[2020-01-17] MEDS: Venlafaxine HCl 75 MG Tablet PO ×2 (09:45→12:55)
[2020-01-17] MEDS: Aspirin E.C. 325 MG Tablet PO (09:45)
[2020-01-17] MEDS: Cyanocobalamin 500 MCG Tablet 1000 MCG PO (09:45)
[2020-01-17] MEDS: QUEtiapine 25 MG Tablet 50 MG PO (09:46)
[2020-01-17 11:25] LABS: Bedside Glucose 100 mg/dL (70-110)
--- NOTE | 2020-01-17 11:29 | CASEMGMT ---
Call from Gaye at [facility] and she states they did not get to do a start of care as pt was back in the hospital prior to this occuring and she will need a new order. She states she also needs charted by physician that pt is homebound and qualifies for [facility] at this time. Dr. Davis aware, voices understanding. New order as well as d/c summ/instructions to be faxed to [facility] once obtained. Syed MITTAL CM
--- NOTE | 2020-01-17 11:52 | PCM.DC ---
- Discharge Diagnoses Current Active Problems: Current Active and Chronic Problems (Last Reviewed 01/14/20 @ 19:[address] Fabiano Garcia, DO) Encephalopathy, toxic (Acute) Bilateral pneumonia (Acute) Transaminitis (Acute) You will use the following diet at home:: Cardiac Your food should be the consistency of: Regular Your liquids should be the consistency of: Regular/Thin Discharge Activity: Return to Normal Activity Call your doctor if you observe: Fever of 101 or Higher, Shortness of breath, Dizziness, Fainting spells, Swelling in the ankles, Chest pain, Increased palpitations (irregular heartbeat) Additional Instructions: Discuss with your PCP about decreasing the dose of your Gabapentin as this may have contributed to your encephalopathy Allergies/Adverse Reactions: Allergies cefuroxime axetil [From Ceftin] Allergy (Verified 01/14/20 14:23) Other [id number]-Ioc Reductase Inhibitor Adverse Reaction (Verified 01/14/20 19:01) MY LEGS GIVE OUT MY LEGS GIVE OUT Medications to take at Discharge Clonazepam [Klonopin] 1 mg PO QHS PRN PRN 07/09/14 Cyanocobalamin [Vitamin B12] 1,000 mcg PO DAILY@0807/09/14 aspirin 81 mg tablet,delayed release 325 mg PO BID tab 10/09/19 Albuterol Sulfate [Albuterol Sulfate HFA] 2 puff INHALATION 4X/DAY 01/14/20 Amlodipine [Norvasc] 10 mg PO DAILY@0801/14/20 Apixaban [Eliquis] 5 mg PO BID 01/14/20 Budesonide/Formoterol Fumarate [Budesonide-Formoterol 160-4.5] 2 puff INHALATION BID 01/14/20 Cholecalciferol (Vitamin D3) [Vitamin D3] 5,000 unit PO DAILY 01/14/20 Gabapentin [Gralise] 600 mg PO TID@0800,1200,199901/14/20 Ipratropium/Albuterol Sulfate [Iprat-Albut 0.5-3(2.5) mg/3 ml] 3 ml IH 4X/DAY 01/14/20 Losartan Potassium [Cozaar] 100 mg PO DAILY@0800 01/14/20 Metoprolol Succinate [Toprol Xl] 100 mg PO QHS@0 08/31/20 Oxycodone HCl 5 mg PO Q6H PRN PRN 01/14/20 Quetiapine Fumarate [Seroquel] 50 mg PO DAILY@0800 01/14/20 Venlafaxine HCl [Effexor] 75 mg PO TID@0800,1200,2000 01/14/20 Quetiapine Fumarate [Seroquel] 100 mg PO QHS@2200 #0 01/17/20 levoFLOXacin tablet [Levaquin tablet] 750 mg PO QODAY #3 tab 01/17/20 The following prescriptions were given: levoFLOXacin tablet [Levaquin tablet] 750 mg PO QODAY #3 tab Transmission Status: Sent to [facility] Primary Care Physician: Quan Reddy MD [Primary Care Provider] - Please follow up with your Primary Care Physician in: 3-5 days Test Results: Test results from this visit will be discussed in further detail at your follow-up appointment, if applicable.
--- NOTE | 2020-01-17 12:00 | CASEMGMT ---
PAULINO called Haydee from [facility] and left her a voice mail letting her know patient is being discharged home today. Venus ROTH MSW
--- NOTE | 2020-01-17 15:56 | PCM.DC.SUM ---
Discharge Date and Diagnosis Date of Admission: 01/14/20 Date of Discharge: 01/17/20 - Secondary Discharge Diagnosis Chronic Problems: Chronic Problems (Last Reviewed 01/14/20 @ 19:[address] Fabiano Garcia, DO) skin cancer vulva (Chronic) history of IVC filter (Chronic) History of syncope (Chronic) and collapse, recurrent.....for over a year now PVD (peripheral vascular disease) (Chronic) Had bypass surgery done by Dr. John Gutierrez HTN (hypertension) (Chronic) Type II diabetes mellitus, uncontrolled (Chronic) diet controlled after the gastric bypas surgery GERD (gastroesophageal reflux disease) (Chronic) History of attempted suicide (Chronic) Psychosis (Chronic) she is seen at [facility] and has hallucinations Nephrolithiasis (Chronic) HLD (hyperlipidemia) (Chronic) History of bariatric surgery (Chronic) 2010? Hospital Course and Treatment Imaging Results: Clinical Impression(s) from Imaging Studies Brain CT 01/14/20 15:05 IMPRESSION: Chronic involutional changes of the brain. Electronically Signed: Han Medel, at 15:49 EDT , Service support , Chest X-Ray 01/14/20 15:30 IMPRESSION: Stable elevation of the left hemidiaphragm with perihilar infiltrates as well as bibasilar infiltrates. Follow-up is recommended. Electronically Signed: Han Medel, at 15:50 EDT , Service support , Consultations 01/14/20 19:30 Consult: Onc/Wound/highway engineering teacher Routine Comment: Operations: None Procedures: None Summary of Care Provided: Per HPI: The patient is a 74 year old F found unresponsive by family. Patient was just discharged by [facility] for an infected graft. Patient is confused this time and unable to provide any history. No family present at bedside. History obtained to the emergency room physician. Patient had work-up that showed infiltrate the x-ray. Patient received Pipracil/tazobactam as well as vancomycin. Family was offered the opportunity return to [facility] but they prefer to stay here for the time being. Hospital Course: 1. Sepsis secondary to suspected gram-negative pneumonia with metabolic versus toxic encephalopathy and acute hypoxic respiratory insufficiency/hyperkalemia/COPD not on chronic [id number] female who was recently admitted to [facility] for a graft site infection in her left leg present to the hospital with altered mental status. She was found unresponsive by family and brought into the hospital. It was found that she is on quite a few depressing medications including Seroquel, gabapentin, as well as oxycodone. These were all discontinued on admission and she was found to also have pneumonia. She was started on vancomycin and Zosyn given her recent admission to the hospital and she recovered very quickly. By day 3 she was off of oxygen completely and ambulated without oxygen. Her marge from her wound that she had done at [facility] about a month ago were removed with the permission of the surgeon, and she was discharged home to complete her course of antibiotics with Levaquin every other day given that her creatinine clearance was less than 50. She will need to follow-up with her PCP in 3 to 5 days. I did did recommend that she decrease her gabapentin half from 600 to 300 mg 3 times daily. And I decreased her Seroquel from 200 mg at night to 100 mg at night. She will continue with her 50 mg dosing in the morning. She can continue with her Effexor at its current dose. Also her Klonopin is only as needed but I did express to her that she should limit how often she takes this medication. I discussed with her the plan for discharge and she expressed understanding of the risks and benefits of going home today. We also discussed the fact that she had been in a detention and this was due to needing a wound VAC after her initial procedure, however given her recent hospitalizations she will need help at home and she is homebound at the moment therefore she qualifies for home health care. 2. Recent recent vascular graft at [facility] secondary to peripheral vascular disease, hypertension, hyperlipidemia, CAD status post CABG, DVT, DM 2 status post gastric bypass, schizophrenia are all chronic conditions which complicate her care. Her home medications for these conditions were continued where appropriate - Physical Exam Vitals/I&O's: Vital Signs Temp Pulse Resp BP Pulse Ox 98.3 F 82 18 168/68 H 96 01/17/20 09:37 01/17/20 10:59 09/03/20 10:59 01/17/20 09:37 01/17/20 10:45 Oxygen Flow Rate (L/min) [ 0 AMBULATING on Room Air] Oxygen Flow Rate (L/min) [At 0 REST on Room Air] Oxygen Flow Rate (L/min) 3 Oxygen Delivery Method Room Air Weight: 182 lb 8.014 oz Body Mass Index (BMI) 30.3 Intake and Output for Last 24 Hours 01/15/20 01/16/20 01/17/20 23:59 23:59 23:59 Intake Total 1178.00 / 1178.00 680 / 1160 1379.17 / 1379.17 Output Total 500 / 500 Balance 678.00 / 678.00 680 / 1160 1379.17 / 1379.17 General: Alert, Cooperative, No apparent distress, Disoriented HEENT: Atraumatic, PERRLA, EOMI, Normocephalic Oral: Moist Mucosa Neck: Supple, No JVD Lungs: Clear to auscultation, no wheezes, no Rales, normal effort, diminished Cardiovascular: Regular rate, Regular Rhythm, Normal S1, Normal S2, No murmurs Abdomen: Soft, Non Tender, Non-Distended, No Hepato-splenomegaly Extremities: No edema Skin: - - Maceration and wound underneath her pannus in the left lower quadrant, appears stable based on review of previous documentation Neurological: Neuro grossly intact, Sensory exam intact to light touch and pain Psych/Mental Status: Normal affect, appropriate Microbiology Past 72 Hours 01/14/20 16:48 Blood Culture (Wb) - Left Hand Blood Culture - Preliminary No growth in 48 hours. 01/14/20 15:15 Blood Culture (Wb) - Right Wrist Blood Culture - Preliminary No growth in 48 hours. 01/14/20 17:00 Mucosa - Nose Respiratory Panel (PCR) - Final 01/14/20 16:10 Urine, Clean Catch Streptococcus pneumoniae Antigen (M - Final 01/14/20 16:10 Urine, Clean Catch Legionella Antigen - Final Laboratory Results 01/16/20 16:58: POC Glucose 91 01/17/20 06:24: POC Glucose 103 01/17/20 07:04: Vancomycin Trough 18.9 H 01/17/20 11:20: POC Glucose 100 Discharge Activity: Return to Normal Activity Call your doctor if you observe: Fever of 101 or Higher, Shortness of breath, Dizziness, Fainting spells, Swelling in the ankles, Chest pain, Increased palpitations (irregular heartbeat) Home Medications: Medications to take at Discharge Clonazepam [Klonopin] 1 mg PO QHS PRN PRN 07/09/14 Cyanocobalamin [Vitamin B12] 1,000 mcg PO DAILY@0807/09/14 aspirin 81 mg tablet,delayed release 325 mg PO BID tab 10/09/19 Albuterol Sulfate [Albuterol Sulfate HFA] 2 puff INHALATION 4X/DAY 01/14/20 Amlodipine [Norvasc] 10 mg PO DAILY@79901/14/20 Apixaban [Eliquis] 5 mg PO BID 01/14/20 Budesonide/Formoterol Fumarate [Budesonide-Formoterol 160-4.5] 2 puff INHALATION BID 01/14/20 Cholecalciferol (Vitamin D3) [Vitamin D3] 5,000 unit PO DAILY 01/14/20 Gabapentin [Gralise] 600 mg PO TID@0800,1199,199901/14/20 Ipratropium/Albuterol Sulfate [Iprat-Albut 0.5-3(2.5) mg/3 ml] 3 ml IH 4X/DAY 01/14/20 Losartan Potassium [Cozaar] 100 mg PO DAILY@79901/14/20 Metoprolol Succinate [Toprol Xl] 100 mg PO QHS@219901/14/20 Oxycodone HCl 5 mg PO Q6H PRN PRN 01/14/20 Quetiapine Fumarate [Seroquel] 50 mg PO DAILY@79901/14/20 Venlafaxine HCl [Effexor] 75 mg PO TID@0800,1200,199901/14/20 Quetiapine Fumarate [Seroquel] 100 mg PO QHS@2199 #0 01/17/20 levoFLOXacin tablet [Levaquin tablet] 750 mg PO QODAY #3 tab 01/17/20 Following Prescriptions Were Given to Patient: levoFLOXacin tablet [Levaquin tablet] 750 mg PO QODAY #3 tab Transmission Status: Received by [facility] Primary Care Physician: Quan Reddy MD [Primary Care Provider] - Please follow up with your Primary Care Physician in: 3-5 days Please Follow Up With: Quan Reddy MD Disposition: Home with Home Health Minutes spent on discharge:: 35 Patient Condition:: Stable Medical Necessity - Tobacco Use Smoking Status: Unknown if ever smoked Meaningful Use Info Meaningful Use Diagnoses (Choose all that apply): None applicable Inpatient E&M: 56524 Disch Hosp
--- NOTE | 2020-01-18 16:55 | CASEMGMT ---
KYRIE VANG Discharge Follow-up Phone Call: TOPHER: Chelo Strata: 3 Call Date: 01/18/2020 Discharge Date: 01/17/2020 Time of Call: 1655 Duration: 4 minutes Admitting Diagnosis: Sepsis, pneumonia, encephalopathy Call placed to pt in follow-up to discharge. Pt states she is doing well and is getting around although her swollen legs are making it difficult. Pt states they are not any more swollen than they were at discharge. Pt states her HH nurse visited today. Reviewed antibiotic and pt aware of the every other day dosing and to start taking it tomorrow. States she is going to discuss with her PCP Dr. Reddy at her visit next week about taking her off one of the medications that had been adjusted while inpt. Home health assisted with med management for the adjusted doses. Pt denies any questions or concerns about her discharge instructions or medications. Adelina Deutsch RN CM
== END 2020-01-17 13:51 | disposition home health service (06) | DRG 871 ==
LOC: ED 15:00 → PCU 19:03
PROVIDERS: Hospitalist; Emergency Provider Emergency Medicine; PCP Internal Medicine; Visit Provider Family Medicine
DX: A41.9 Sepsis, unspecified organism (principal); J15.6 Pneumonia due to other Gram-negative bacteria; G92 Toxic encephalopathy; C44.90 Unspecified malignant neoplasm of skin, unspecified; E11.65 Type 2 diabetes mellitus with hyperglycemia; E11.51 Type 2 diabetes mellitus with diabetic peripheral angiopathy without gangrene; I10 Essential (primary) hypertension; K21.9 Gastro-esophageal reflux disease without esophagitis; E78.5 Hyperlipidemia, unspecified; F32.9 Major depressive disorder, single episode, unspecified; Z95.828 Presence of other vascular implants and grafts; Z98.84 Bariatric surgery status; Z87.891 Personal history of nicotine dependence; Z91.5 Personal history of self-harm; Z66 Do not resuscitate; F29 Unspecified psychosis not due to a substance or known physiological condition; R74.0 Nonspecific elevation of levels of transaminase and lactic acid dehydrogenase [LDH]; F20.9 Schizophrenia, unspecified; J44.9 Chronic obstructive pulmonary disease, unspecified; Z79.82 Long term (current) use of aspirin; Z79.01 Long term (current) use of anticoagulants; Z82.49 Family history of ischemic heart disease and other diseases of the circulatory system; Z68.30 Body mass index [BMI] 30.0-30.9, adult; E87.5 Hyperkalemia; I25.10 Atherosclerotic heart disease of native coronary artery without angina pectoris; N20.0 Calculus of kidney; Z80.52 Family history of malignant neoplasm of bladder; Z85.44 Personal history of malignant neoplasm of other female genital organs; Z85.828 Personal history of other malignant neoplasm of skin; Z86.711 Personal history of pulmonary embolism; Z86.73 Personal history of transient ischemic attack (TIA), and cerebral infarction without residual deficits; Z90.49 Acquired absence of other specified parts of digestive tract; Z95.1 Presence of aortocoronary bypass graft; Z90.710 Acquired absence of both cervix and uterus; Z87.442 Personal history of urinary calculi
CPT/HCPCS: 36415; 36600; 70450; 71045; 80048; 80053; 80202; 81001; 82140; 82803; 82962; 83605; 84145; 84484; 85025; 85027; 85610; 85730; 87040; 87449; 87633; 87635; 93005; 94640; 94667; 94668; 94799; 97162; 97166; 97530; 97535; 97802; 99285; J7040; J7050; A4216; U0003